=== PATIENT | female | born 1995 | race Hispanic/Latino ===

== ENCOUNTER 2020-08-28 18:10 | Observation (INO) | payer MEDICAID ==
[~2020-08-28] VITALS: Ht 157.5 cm; Wt 86.2 kg
[2020-08-28 18:53] LABS: BILIRUBIN,URINE Small (NEGATIVE); COLOR,URINE Dark Yellow (YELLOW); GLUCOSE, URINE (UA) Negative (NEGATIVE); KETONES,URINE Trace mg/dL (NEGATIVE); LEUKOCYTE ESTERASE ,URINE Small (NEGATIVE); NITRATE,URINE Negative (NEGATIVE); OCCULT BLOOD,URINE Small (NEGATIVE); PROTEIN,URINE Trace mg/dL (NEGATIVE)
[2020-08-28 18:54] LABS: APPEARANCE,URINE CLEAR (CLEAR)
[2020-08-28 18:59] VITALS: BP 116/72
[2020-08-28 19:00] LABS: BACTERIA,URINE Few /HPF (None Seen); TRANSITIONAL EPI CELLS,URINE Few /HPF (None Seen)
[2020-08-28 19:01] LABS: MUCUS,URINE Rare LPF (None Seen); SQUAMOUS EPITHELIAL CELL,UR Moderate /HPF (0-2)
== END 2020-08-28 20:03 | disposition home or self-care (01) ==
LOC: EDH 18:10 → LDH 18:28
PROVIDERS: ADMIT Obstetrics & Gynecology; ATTEND Obstetrics & Gynecology
DX: O26.893 Other specified pregnancy related conditions, third trimester (principal); R10.9 Unspecified abdominal pain; Z3A.38 38 weeks gestation of pregnancy
CPT/HCPCS: 59025; 81001; 99284; G0378 ×2

== ENCOUNTER 2020-09-05 10:41 | Inpatient (IN) | payer MEDICAID ==
[~2020-09-05] VITALS: Ht 157.5 cm; Wt 88.0 kg
[2020-09-05 11:55] LABS: BASOPHILS % (AUTO) 0.1 % (0.0-5.0); EOSINOPHILS % (AUTO) 0.4 % (0.0-8.0); HEMATOCRIT 34.7 % (36-48); LYMPHOCYTES % (AUTO) 19.5 % (21.0-51.0); MEAN CORPUSCULAR HEMOGLOBIN 25.4 pg (27.0-33.0); MEAN CORPUSCULAR HGB CONC 31.4 g/dL (32.0-36.0); MEAN CORPUSCULAR VOLUME 80.9 fL (79-99); MONOCYTES % (AUTO) 4.6 % (3.0-13.0); NEUTROPHILS % (AUTO) 74.5 % (40.0-77.0); PLATELET COUNT (AUTO) 200 K/uL (130-400); RED BLOOD CELL COUNT(AUTO) 4.29 MIL/uL (4.00-5.50); RED CELL DISTRIBUTION WIDTH 14.4 % (11.0-15.5); WHITE BLOOD COUNT (AUTO) 7.5 K/uL (4.8-10.8)
[2020-09-05 11:58] LABS: CREATININE 0.6 mg/dL (0.5-1.5); POTASSIUM 3.6 mmol/L (3.5-5.1)
[2020-09-05 12:02] LABS: ALBUMIN 2.5 g/dL (3.5-5.0); BILIRUBIN,TOTAL 0.5 mg/dL (0.2-1.0); TOTAL PROTEIN, SERUM 6.9 g/dL (6.0-8.3)
[2020-09-05 12:04] LABS: INR 0.91 (0.85-1.15); PROTHROMBIN TIME 9.8 SEC (9.6-11.6)
[2020-09-05 12:05] LABS: PARTIAL THROMBOPLASTIN TIME 23.1 SEC (26.3-35.5)
[2020-09-05 13:43] LABS: APPEARANCE,URINE Clear (CLEAR); BILIRUBIN,URINE Negative (NEGATIVE); COLOR,URINE Dark Yellow (YELLOW); GLUCOSE, URINE (UA) Negative (NEGATIVE); KETONES,URINE Trace mg/dL (NEGATIVE); LEUKOCYTE ESTERASE ,URINE Small (NEGATIVE); NITRATE,URINE Negative (NEGATIVE); OCCULT BLOOD,URINE Negative (NEGATIVE); PROTEIN,URINE POS 1+ mg/dL (NEGATIVE)
[2020-09-05 14:16] LABS: BACTERIA,URINE Moderate /HPF (None Seen); MUCUS,URINE Moderate LPF (None Seen); SQUAMOUS EPITHELIAL CELL,UR Many /HPF (0-2)
[2020-09-05] MEDS ORDERED: LACTATED RINGERS 1000ML 1,000 ML IV PRN (15:15)
[2020-09-05] MEDS ORDERED: PROMETHAZINE HCL 25 MG/ML 1ML AMPULE IM PRN (15:15)
[2020-09-05] MEDS ORDERED: MEPERIDINE-PF 50 MG/ML SYG IVP PRN (15:15)
[2020-09-05 15:16] VITALS: BP 125/56
[2020-09-05] MEDS: OXYTOCIN-LR 20 UNITS/1000 ML 1,000 ML IV SCH ×2 (15:50→15:51)
[2020-09-05] MEDS ORDERED: DOCUSATE SODIUM 100 MG CAP PO ONE (21:15)
[2020-09-05] MEDS ORDERED: CALCIUM CARB 500MG CHEW TAB PO PRN (22:30)
[2020-09-06] MEDS ORDERED: MEPERIDINE-PF 50 MG/ML SYG ONE (08:05)
[2020-09-06] MEDS ORDERED: LIDOCAINE HCL 1% 20 ML VIAL ONE (08:07)
[2020-09-06] MEDS ORDERED: PROMETHAZINE HCL 25 MG/ML 1ML AMPULE IM SCH (08:30)
[2020-09-06] MEDS ORDERED: OXYTOCIN-LR 20 UNITS/1000 ML 1,000 ML IV SCH (12:00)
[2020-09-06] MEDS ORDERED: ACETAMINOPHEN 325 MG TAB PO PRN (12:00)
[2020-09-06] MEDS ORDERED: MEASLES/MUMPS/RUBELLA VACCINE, LIVE 0.5 ML/VIAL SQ PRN (12:00)
[2020-09-06] MEDS ORDERED: BENZOCAINE/LANOLIN/ALOE VERA 60 ML AEROSOL TP PRN (12:00)
[2020-09-06] MEDS ORDERED: LANOLIN 30GM OINTMENT TP PRN (12:00)
[2020-09-06] MEDS ORDERED: DIPH,PERTUSS(ACELL),TET VAC/PF 0.5 ML VIAL IM PRN (12:00)
[2020-09-06] MEDS ORDERED: ACETAMINOPHEN WITH CODEINE 1 TAB TAB PO PRN (12:00)
[2020-09-06] MEDS ORDERED: WITCH HAZEL 1 PAD TP PRN (12:00)
[2020-09-06 12:45] VITALS: BP 131/76
[2020-09-06] MEDS: IBUPROFEN 600 MG TABLET PO PRN ×2 (12:47→22:31)
[2020-09-06] MEDS ORDERED: PREN-196 PO (12:52)
[2020-09-06 16:00] VITALS: BP 112/59
[2020-09-06 20:26] VITALS: BP 108/59
[2020-09-06] MEDS: DOCUSATE SODIUM 100 MG CAP PO SCH (21:00)
[2020-09-07] VITALS (7 sets, daily range): BP systolic 97–128; BP diastolic 53–74
[2020-09-07 07:15] LABS: HEPATITIS Bs ANTIGEN SCREEN P Negative (Negative)
[2020-09-07] MEDS: DOCUSATE SODIUM 100 MG CAP PO SCH ×2 (10:15→21:17)
[2020-09-07] MEDS: IBUPROFEN 600 MG TABLET PO PRN ×2 (10:15→16:18)
[2020-09-08 04:02] VITALS: BP 121/73
[2020-09-08 07:30] VITALS: BP 120/82
[2020-09-08] MEDS: DOCUSATE SODIUM 100 MG CAP PO SCH (08:35)
[2020-09-08] MEDS: IBUPROFEN 600 MG TABLET PO PRN (08:35)
== END 2020-09-08 11:00 | disposition home or self-care (01) | DRG 560 ==
LOC: EDH 10:41 → OBSVTOIN 10:42 → LDH 10:42 → WSH 09-06 13:00
PROVIDERS: ADMIT Specialist; ATTEND Specialist
PROC: 10E0XZZ Delivery of Products of Conception, External Approach (ICD-10-PCS; principal; 2020-09-06)
PROC: 0KQM0ZZ Repair Perineum Muscle, Open Approach (ICD-10-PCS; 2020-09-06)
PROC: 3E0134Z Introduction of Serum, Toxoid and Vaccine into Subcutaneous Tissue, Percutaneous Approach (ICD-10-PCS; 2020-09-06)
PROC: 3E0234Z Introduction of Serum, Toxoid and Vaccine into Muscle, Percutaneous Approach (ICD-10-PCS; 2020-09-06)
PROC: 10907ZC Drainage of Amniotic Fluid, Therapeutic from Products of Conception, Via Natural or Artificial Opening (ICD-10-PCS; 2020-09-06)
PROC: 3E033VJ Introduction of Other Hormone into Peripheral Vein, Percutaneous Approach (ICD-10-PCS; 2020-09-06)
PROC: 3E0234Z Introduction of Serum, Toxoid and Vaccine into Muscle, Percutaneous Approach (ICD-10-PCS; 2020-09-07)
DX: O26.62 Liver and biliary tract disorders in childbirth (principal); O26.893 Other specified pregnancy related conditions, third trimester; K83.1 Obstruction of bile duct; O70.1 Second degree perineal laceration during delivery; Z37.0 Single live birth; Z67.41 Type O blood, Rh negative; Z23 Encounter for immunization; Z3A.38 38 weeks gestation of pregnancy
CPT/HCPCS: 36415; 76805; 76819; 80053; 81001; 82977; 83033; 85025; 85610; 85730; 86592; 86850; 86900; 86901; 87088; 87340; A4351; G0378; J2175; J2590; J2791; J7120